=== PATIENT | male | born 1965 | race Caucasian/White ===

== ENCOUNTER 2016-11-01 04:03 | Observation (INO) | payer MEDICARE, MEDICAID ==
[~2016-11-01] VITALS: Ht 175.3 cm; Wt 104.3 kg
[~2016-11-01 04:03] MED LIST: ACYC400T PO; ALBU8.5H3 IH; ALBU8.5H3 INH; AMLO10TA4 PO; AMLO5TAB4 PO; AMOX1TAB61 PO; ARIP10TA13 PO; ASCO100T4 PO; ASPI325T4 PO; ATORVASTATIN CA80 MG PO; AZEL137S3 NS; BENZ200C39 PO; CANA100T PO; CARV12.5 PO; CHOL4000 PO; CLON1TAB3 PO; CLOP75TA PO; CLOP75TA27 PO; CLOT12CR2 TP; DICY20TA3 PO; DIPH1TAB PO; DIVA125C PO; FLUT16SP2 NS; FURO20TA3 PO; FURO40TA4 PO; GABA600T2 PO; GLIM4TAB2 PO; HYDR-2666 PO; HYDR-2762 PO; HYDR26CR TP; INSU100V13 SQ; ISOS60TA2 PO; KETO15CR TP; LEVE250T30 PO; LIPITOR80 MG PO; LOSA100T6 PO; LOXA5CAP PO; MAGN400T3 PO; METF10002 PO; METF500T4 PO; METOPROLOL 25 MG PO; MONT10TA6 PO; MONT10TA9 PO; MULT1TAB52 PO; NAPR220T70 PO; NAPR500T3 PO; NAPR500T8 PO; NITR0.4T6 SL; NYST1POW2 TP; NYST60PO TP; OMEG-33 PO; PANT40TA5 PO; PARO20TA55 PO; PARO30TA45 PO; PHEN100C PO; POTA10TA10 PO; POTA20TA12 PO; SITA100T PO; TRAZ100T12 PO; TRAZ150T55 PO
--- NOTE | 2016-11-01 04:20 | ED.ADGEN ---
Past History Past Medical History: Anxiety, CHF, Depression, Diabetes, GERD, High Cholesterol, Heart Disease, Hypertension, IBS, Seizure, Other Past Surgical History: Other Alcohol Use: Occasionally Drug Use: None Adult General Chief Complaint Chief Complaint '.. jezzes.. jezzes.. er .. er... " HPI HPI Patient is a 51 year old male who presents with hx of tonic clonic seizure at [facility] in [place], [place]. Pt. resident at [facility] since 2014. Pt. follows with Dr. Flores. Pt. has hx of seizure disorder. No information from Care Home for recent hx. given. Mold Yarn Supervisor advised he had a mental status change and tonic clonic seizure and received 2 mg Ativan IM. Pt. Has extensive medical hx. with HTN, DM, Lipdemia, Chronic Low back pain, Dermatophytosis, CADz, Morbid Obesity, SZ disorder, High risk homosexual behaviors , Herpes gingivostomatitis, Rhinitis, Depression, Tinea cruris, hemorrhoids, Osteoarthritis, Sleep apnea, AL, IBS, Anxiety, GERD, chronic headaches. Pt. on arrival appears post ictal. Pt. does respond to noxious stimuli and cross reacts. Pt. with repeated requests will move all extremities. Pt. DPA is Sheila Belle. [phone], and [phone]. No answer at [place] to determine currently hx of events. Review of Systems Review of Systems Pt. poor historian secondary to post itcal and mental status change Family History Family History Not currently available Current Medications Current Medications See Nursing for home meds. Allergies Allergies Allergies Coded Allergies Type Severity Reaction Last Updated Verified amitriptyline Allergy Intermediate 04/15/15 Yes risperidone Allergy Intermediate severe anxiety 04/15/15 Yes Physical Exam Physical Exam Constitutional: moderate distress, non-toxic appearance. [] HENT: Normocephalic, atraumatic, bilateral external ears normal, oropharynx moist, no oral exudates, nose normal. []Does have gag. Eyes: PERRLA, EOMI, conjunctiva normal, no discharge. [] Neck: Normal range of motion, no tenderness, supple, no stridor. [] Trachea mid line. Cardiovascular:Heart rate regular rhythm, no murmur , PMI to the left Lungs & Thorax: Bilateral breath sounds equal with scatter wheezes and rhonchi more Rt upper on auscultation [] Abdomen: Bowel sounds normal, soft, no tenderness, no masses, no pulsatile masses. Morbid obesity, incontinence Skin: Warm, dry, no erythema, no rash. Poor turgor Back: No tenderness, no CVA tenderness. [] Extremities: Does move extremities with noxious stimuli and repeat requests , edema. [] Neurologic: Only responsive to noxious stimuli and repeat requests. Does have a cross react motor function, appears to respond to noxious sensory Psychologic appears postictal, unable to make psychological assessment Current Patient Data Vital Signs Vital Signs Date Time Temp Pulse Resp B/P Pulse Ox O2 Delivery O2 Flow Rate FiO2 11/01/16 04:03 97.7 77 18 95 Room Air Lab Results Laboratory Tests Test 11/01/16 04:10 11/01/16 04:15 White Blood Count 5.7x10^3/uL (4.0-11.0) Red Blood Count 5.02x10^6/uL (4.30-5.70) Hemoglobin 13.7g/dL (13.0-17.5) Hematocrit 41.2% (39.0-53.0) Mean Corpuscular Volume 82fL (79-100) Mean Corpuscular Hemoglobin 27pg (25-35) Mean Corpuscular Hemoglobin Concent 33g/dL (31-37) Red Cell Distribution Width 16.0% (11.5-14.5) H Platelet Count 188x10^3/uL (140-400) Neutrophils (%) (Auto) 68% (31-73) Lymphocytes (%) (Auto) 20% (24-48) L Monocytes (%) (Auto) 9% (0-9) Eosinophils (%) (Auto) 3% (0-3) Basophils (%) (Auto) 0% (0-3) Neutrophils # (Auto) 3.9x10^3uL (1.8-7.7) Lymphocytes # (Auto) 1.1x10^3/uL (1.0-4.8) Monocytes # (Auto) 0.5x10^3/uL (0.0-1.1) Eosinophils # (Auto) 0.2x10^3/uL (0.0-0.7) Basophils # (Auto) 0.0x10^3/uL (0.0-0.2) Prothrombin Time 10.9SEC (9.4-11.4) Prothrombin Time INR 1.1 (0.9-1.1) PTT 30SEC (23-33) D-Dimer (Annie) 0.74mg/L (0.00-0.50) H Sodium Level 129mmol/L (136-145) L Potassium Level 3.9mmol/L (3.5-5.1) Chloride Level 91mmol/L (98-107) L Carbon Dioxide Level 31mmol/L (21-32) Anion Gap 7 (6-14) Blood Urea Nitrogen 7mg/dL (8-26) L Creatinine 0.7mg/dL (0.7-1.3) Estimated GFR (Cockcroft-Gault) 118.4 Glucose Level 71mg/dL (70-99) Calcium Level 8.7mg/dL (8.5-10.1) Magnesium Level 1.5mg/dL (1.8-2.4) L Total Bilirubin 0.3mg/dL (0.2-1.0) Direct Bilirubin 0.1mg/dL (0.0-0.2) Aspartate Amino Transferase (AST) 23U/L (15-37) Alanine Aminotransferase (ALT) 30U/L (16-63) Alkaline Phosphatase 112U/L (46-116) Creatine Kinase 117U/L (39-308) Creatine Kinase MB (Mass) 2.1ng/mL (0.0-3.6) Creatine Kinase MB Relative Index 1.8% (0-4) Troponin I Quantitative < 0.017ng/mL (0-0.055) DM-Zcl-T-Type Natriuretic Peptide 67pg/mL (0-124) Total Protein 7.4g/dL (6.4-8.2) Albumin 4.0g/dL (3.4-5.0) Lipase 373U/L (73-393) Phenytoin (Dilantin) Level 21.8mcg/mL (10.0-20.0) H Phenytoin Last Dose Date Unknown Phenytoin Last Dose Time Unknown Valproic Acid Level 20mcg/mL (50-100) L Valproic Acid Last Dose Date Unknown Valproic Acid Last Dose Time Unknown Urine Collection Type Unknown Urine Color Yellow Urine Clarity Clear Urine pH 7.5 Urine Specific Parker 1.010 Urine Protein Neg (NEG-TRACE) Urine Glucose (UA) 250mg/dL (NEG) Urine Ketones (Stick) Negmg/dL (NEG) Urine Blood Trace (NEG) Urine Nitrite Neg (NEG) Urine Bilirubin Neg (NEG) Urine Urobilinogen Dipstick 0.2mg/dL (0.2 mg/dL) Urine Leukocyte Esterase Neg (NEG) Urine RBC Occ/HPF (0-2) Urine WBC Rare/HPF (0-4) Urine Squamous Epithelial Cells Occ/LPF Urine Bacteria 0/HPF (0-FEW) Urine Opiates Screen Neg (NEG) Urine Methadone Screen Neg (NEG) Urine Barbiturates Neg (NEG) Urine Phencyclidine Screen Neg (NEG) Urine Amphetamine/Methamphetamine Neg (NEG) Urine Benzodiazepines Screen Neg (NEG) Urine Cocaine Screen Neg (NEG) Urine Cannabinoids Screen Neg (NEG) Urine Ethyl Alcohol Neg (NEG) EKG EKG I interpretation EKG shows sinus rhythm at 69. No findings acute STEMI of contralateral changes. [] Radiology/Procedures Radiology/Procedures I interpretation of chest x-ray shows no acute cardiopulmonary changes. Does have findings of chronic with no interval change . My interpretation of CT of head shows no shift, mass, edema, bleed, or fracture. No obvious interval change. See formal report when available. [] Course & Med Decision Making Course & Med Decision Making Pertinent Labs and Imaging studies reviewed. (See chart for details) Discussed presentation, testing and tx. plan with Dr. Timmons. Will admit for further eval and tx. Consult to Dr. Banda. - Neurology Reexamine patient - slowly returning responsiveness. Patient now able to answer simple questions at 0530 Hrs. [] Final Impression Final Impression 1. Tonic Clonic Seizure- Prolonged Post ictal. 2. Mental Status Change[] 3. Hyponatremia 4. Hypomagnesium 5. Mild elevation D-dimer Problems: Dragon Disclaimer Dragon Disclaimer This electronic medical record was generated, in whole or in part, using a voice recognition dictation system. SRINI YE MD Nov 01, 2016 04:20
[2016-11-01] MEDS ORDERED: ONDANSETRON PF 4 MG/2 ML VIAL. IV PRN (04:30)
[2016-11-01 04:44] LABS: BASO % 0 % (0-3); EOS # 0.2 x10^3/uL (0.0-0.7); EOS % 3 % (0-3); HEMATOCRIT 41.2 % (39.0-53.0); HEMOGLOBIN 13.7 g/dL (13.0-17.5); LYMPH # 1.1 x10^3/uL (1.0-4.8); LYMPH % 20 % (24-48); MEAN CORPUSCULAR HEMOGLOBIN 27 pg (25-35); MEAN CORPUSCULAR HGB CONC 33 g/dL (31-37); MEAN CORPUSCULAR VOLUME 82 fL (79-100); MONO # 0.5 x10^3/uL (0.0-1.1); MONO % 9 % (0-9); NEUT # 3.9 x10^3uL (1.8-7.7); NEUT % 68 % (31-73); PLATELET COUNT 188 x10^3/uL (140-400); RED BLOOD COUNT 5.02 x10^6/uL (4.30-5.70); WHITE BLOOD COUNT 5.7 x10^3/uL (4.0-11.0)
[2016-11-01 04:53] LABS: CLARITY,URINE CLEAR; COLOR,URINE YELLOW
[2016-11-01 04:54] LABS: BACTERIA,URINE 0 /HPF (0-FEW); BILIRUBIN,URINE NEG (NEG); GLUCOSE,URINE 250 mg/dL (NEG); NITRITE,URINE NEG (NEG); RBC,URINE OCC /HPF (0-2); SQUAMOUS EPITHELIAL CELL,UR OCC /LPF; UROBILINOGEN,URINE 0.2 mg/dL (0.2 mg/dL); WBC,URINE RARE /HPF (0-4)
[2016-11-01 04:56] LABS: BARBITURATES NEG (NEG); BENZODIAZEPINES NEG (NEG); CANNABINOIDS NEG (NEG); COCAINE NEG (NEG); METHADONE NEG (NEG); OPIATES NEG (NEG); PHENCYCLIDINE NEG (NEG)
[2016-11-01 04:57] LABS: AMPHETAMINE/METHAMPHETAMINE NEG (NEG)
--- NOTE | 2016-11-01 04:59 | RAD ---
CT head without contrast: Reason for examination: Mental status changes with seizure. Axial images were obtained through the brain with no contrast administered. Exposure: One or more of the following individualized dose reduction techniques were used for this examination: 1. Automated exposure control. 2. Adjustment of the mA and/or kV according to patient size. 3. Use of iterative reconstruction technique. Ventricular systems arm mildly prominent for the patient's age. No definite midline shift is seen. There is no evidence of intracranial hemorrhage, infarct, mass or edema. No abnormalities are seen in the orbits. Paranasal sinuses and mastoid air cells are clear. No acute skull abnormality is seen. Impression: No acute intracranial abnormality however ventricular systems are prominent for the patient's age but may reflect some cerebral atrophy. Recommend clinical correlation. Electronically signed by: Carol Dinh MD (Nov 01, 2016 04:57:40)
[2016-11-01] MEDS ORDERED: CEFTRIAXONE IM 1 GM VIAL. IM ONE (05:00)
[2016-11-01] MEDS ORDERED: LORAZEPAM 2 MG/ML VIAL IV ONE (05:00)
[2016-11-01] MEDS ORDERED: IV RINGERS SOLUTION,LACTATED 1,000 ML IV SCH (05:00)
[2016-11-01 05:10] LABS: ALK PHOS 112 U/L (46-116); ALT (SGPT) 30 U/L (16-63); ANION GAP 7 (6-14); AST (SGOT) 23 U/L (15-37); BLOOD UREA NITROGEN 7 mg/dL (8-26); CALCIUM 8.7 mg/dL (8.5-10.1); CARBON DIOXIDE 31 mmol/L (21-32); CHLORIDE 91 mmol/L (98-107); CREATINE KINASE 117 U/L (39-308); CREATININE 0.7 mg/dL (0.7-1.3); DIRECT BILIRUBIN 0.1 mg/dL (0.0-0.2); GFR 118.4; GLUCOSE 71 mg/dL (70-99); LIPASE 373 U/L (73-393); MAGNESIUM 1.5 mg/dL (1.8-2.4); PHENY 21.8 mcg/mL (10.0-20.0); POTASSIUM 3.9 mmol/L (3.5-5.1); SODIUM 129 mmol/L (136-145); TOTAL BILIRUBIN 0.3 mg/dL (0.2-1.0); TOTAL PROTEIN 7.4 g/dL (6.4-8.2)
[2016-11-01 05:12] LABS: VAL ACID 20 mcg/mL (50-100)
[2016-11-01] MEDS ORDERED: LORAZEPAM 2 MG/ML VIAL IV PRN (05:45)
[2016-11-01] MEDS ORDERED: SODIUM BICARB ADULT 8.4% 50 MEQ/50 ML DISP.SYRIN. IV ONE (06:00)
[2016-11-01] MEDS ORDERED: ENOXAPARIN ** NOTE DOSE ** SYRINGE SQ ONE (06:00)
[2016-11-01] MEDS ORDERED: MAGNESIUM SULFATE 2GM 50 ML IV ONE (06:00)
--- NOTE | 2016-11-01 06:40 | ACF ---
Admit Criteria Forms Admit Criteria Forms Admit Criteria Forms MENTAL STATUS CHANGE Clinical Indications for Inpatient Care (Place 'X' for any and all applicable criteria): Ongoing inpatient care may be needed for ANY ONE of the following(1)(2)(3)(5)(6) : [X]I. Suspected serious etiology (eg, medical disorder, NETWORK DIAGNOSTIC SUPPORT SPECIALIST event) of mental status change [ ]II. Danger to self or others not manageable at lower level of care [ ]III. Grave disability (eg, inability to perform self care necessary at lower level of care) [ ]IV. Agitation or inappropriate behavior interfering with care for primary condition (eg, attempting to discontinue lines or drains prematurely, unable to cooperate with respiratory care) [ ]V. Delirium [A] [D][E] as described by ANY ONE of the following(26): [ ]a) Delirium due to alcohol or sedative [F] withdrawal [ ]b) Delirium of uncertain etiology that has not responded to appropriate empiric treatment [ ]c) Delirium that prevents performance of a life-sustaining function (eg, feeding or hydrating oneself) [ ]. General contraindications and/or Inappropriate clinical situations for Observational Care in patients with Mental Status Change, when ANY ONE of the following is required: [ ]a) Prediction of prolongation of LOS based on ANY ONE of the following may be considered as a contraindication for observational care 2, 3, 4, 5, 6, 7, 8, 9, 10, 11 [ ]i) Age > 65 yrs. [ ]ii) Patient arriving by ambulance [ ]iii) Patient with high acuity [ ]iv) Patient requiring vital sign monitoring [ ]v) Patient on IV medication [ ]b) Systolic blood pressures 180mmHg 3,12 [ ]c) Patient with altered mental status including delirium and other alteration of consciousness, (3) [ ]d) Patient whose discharge disposition will be to a fci home or rehabilitation home should not be managed in Emergency Department Observation Unit. CMS rule requires 3 days hospital stay before such placement.3,13 [ ]e) Patient with failure to thrive due to broad array of etiologies 3,16,17 [ ]f) Inability to ambulate 3,14 Extended stay beyond goal length of stay for the primary condition may be needed until ALL of the following are present(3)(5): [ ]a) Underlying medical etiology of mental status change is absent, or has been established and adequately treated [ ]b) Danger to self or others is absent or manageable at lower level of care. [ ]c) Behavior crisis management, including physical or chemical restraints, is not required or available at lower level of car [ ]d) Substance or alcohol withdrawal is absent or manageable at lower level of care. [ ]e) Behavioral symptoms (eg, agitation, somnolence, inappropriate behavior) are absent, or are manageable at lower level of care. The original [facility] [employer] content created by [facility] [employer] has been revised. The portions of the content which have been revised are identified through the use of italic text or in bold, and [facility] has neither reviewed nor approved the modified material. All other unmodified content is copyright [facility] [employer]. Please see references footnoted in the original [facility] [employer] edition 2016 DOROTHY CHAPPELL Nov 01, 2016 06:40
--- NOTE | 2016-11-01 06:41 | EKG ---
[address] [address] Test Date: 2016-11-01 Test Time: 04:08:07 Pat Name: HARI DAVIS Department: Room: Gender: M Development Officer: CONNER : 1965 Requested By: SRINI YE Order Number: [id number] Reading MD: Measurements Intervals [place] Rate: 69 P: 32 ND: 170 QRS: 39 QRSD: 104 T: 54 QT: 384 QTc: 413 Interpretive Statements SINUS RHYTHM NO SPECIFIC ECG ABNORMALITIES RI6.01 Unconfirmed report No previous ECG available for comparison
[2016-11-01 07:14] LABS: INFLUENZA A PATIENT NEGATIVE (NEGATIVE); INFLUENZA B PATIENT NEGATIVE (NEGATIVE)
--- NOTE | 2016-11-01 07:14 | RAD ---
Portable chest, 11/01/2016: History: Seizure Comparison is made to a study from 09/17/2016. The heart size and pulmonary vascularity are normal. No pulmonary infiltrates are seen. There is no evidence of pleural fluid. IMPRESSION: No acute cardiopulmonary abnormality is detected.
[2016-11-01 07:24] VITALS: BP 127/76
[2016-11-01 08:00] VITALS: BP 127/64
[2016-11-01 09:00] VITALS: BP 102/55
[2016-11-01] MEDS ORDERED: ASPIRIN 81 MG TAB.CHEW PO SCH (09:00)
[2016-11-01 10:00] VITALS: BP 130/72
[2016-11-01] MEDS ORDERED: PHEN100C PO (10:15)
[2016-11-01 11:24] VITALS: BP 156/79
--- NOTE | 2016-11-01 15:09 | DS ---
DATE OF DISCHARGE: 11/01/2016 ADMISSION DATE: 11/01/2016. DISCHARGE DATE: 11/01/2016. DISCHARGE DIAGNOSES: 1. Pseudoseizure. 2. Chronic hyponatremia. 3. Hypomagnesemia -- replaced. 4. Diabetes. 5. Depression. 6. Anxiety. 7. Obstructive sleep apnea. BRIEF HOSPITAL COURSE: This is a 51-year-old male, who resides at [facility] in [place], [place]. He apparently yelled out from his bed, I am having a seizure, I am having a seizure, please come here. I need my phone, please called the ambulance, I am having a seizure. The patient was awake the entire time of complaining of a seizure and was not postictal or incontinent. He was transported to the hospital and was admitted for observation. The patient admitted to being stressed out because of the director at the facility where he is at is retired and this has made him upset and he started crying briefly. MEDICATIONS: His medications were reviewed and are available on the MAR. REVIEW OF SYSTEMS: Negative except for anxiety. OBJECTIVE: VITAL SIGNS: Blood pressure 132/72, pulse 68, respirations 20, and pulse ox was 93% on room air. GENERAL: The patient is alert. HEENT: Pupils are equal, round, and react to light. Extraocular muscles are intact. He does have cross eyed. His nose is patent. His throat was clear. NECK: Supple. LUNGS: Clear. CARDIOVASCULAR: Regular rhythm and rate. ABDOMEN: Soft, nontender. EXTREMITIES: Without edema. NEUROLOGIC: He is intact. There is no seizure activity. His mood is anxious. LABORATORY DATA: Reviewed. His magnesium was 1.5. This was replaced. His sodium was 129, which is fairly chronic from polydipsia. His Dilantin level was 21.8. His valproic acid level was 20. He was seen in consultation by Dr. Banda and felt also it was most likely a pseudoseizure. He was discharged back to [facility]. He will follow up with Dr. Banda as needed. I did decrease his nighttime Dilantin from 400 to 300 mg at bedtime. MY GONZALEZ DO DR: JOSE LUIS/evangelista JOB#: [id number] / [id number]
[2016-11-01 20:07] LABS: HEMOGLOBIN A1C 5.2 % (4.8-5.6)
--- NOTE | 2016-11-03 13:57 | SSS ---
ADMIT DATE: 11/01/2016 ADMISSION DATE: 11/01/2016. DISCHARGE DATE: 11/01/2016. DISCHARGE DIAGNOSES: 1. Pseudoseizure. 2. Chronic hyponatremia. 3. Hypomagnesemia -- replaced. 4. Diabetes. 5. Depression. 6. Anxiety. 7. Obstructive sleep apnea. BRIEF HOSPITAL COURSE: This is a 51-year-old male, who resides at [facility] in [place], [place]. He apparently yelled out from his bed, I am having a seizure, I am having a seizure, please come here. I need my phone, please called the ambulance, I am having a seizure. The patient was awake the entire time of complaining of a seizure and was not postictal or incontinent. He was transported to the hospital and was admitted for observation. The patient admitted to being stressed out because of the director at the facility where he is at is retired and this has made him upset and he started crying briefly. MEDICATIONS: His medications were reviewed and are available on the MAR. REVIEW OF SYSTEMS: Negative except for anxiety. OBJECTIVE: VITAL SIGNS: Blood pressure 132/72, pulse 68, respirations 20, and pulse ox was 93% on room air. GENERAL: The patient is alert. HEENT: Pupils are equal, round, and react to light. Extraocular muscles are intact. He does have cross eyed. His nose is patent. His throat was clear. NECK: Supple. LUNGS: Clear. CARDIOVASCULAR: Regular rhythm and rate. ABDOMEN: Soft, nontender. EXTREMITIES: Without edema. NEUROLOGIC: He is intact. There is no seizure activity. His mood is anxious. LABORATORY DATA: Reviewed. His magnesium was 1.5. This was replaced. His sodium was 129, which is fairly chronic from polydipsia. His Dilantin level was 21.8. His valproic acid level was 20. He was seen in consultation by Dr. Banda and felt also it was most likely a pseudoseizure. He was discharged back to [facility]. He will follow up with Dr. Banda as needed. I did decrease his nighttime Dilantin from 400 to 300 mg at bedtime. MY GONZALEZ DO DR: JOSE LUIS/evangelista JOB#: [id number] / [id number]
== END 2016-11-01 11:55 | disposition home or self-care (01) ==
LOC: ER 04:14 → INTOOBSV 04:29 → ICU 04:29
PROVIDERS: ADMIT Internal Medicine; ATTEND Internal Medicine
DX: F44.5 Conversion disorder with seizures or convulsions (principal); E87.1 Hypo-osmolality and hyponatremia; E83.42 Hypomagnesemia; E11.9 Type 2 diabetes mellitus without complications; F32.9 Major depressive disorder, single episode, unspecified; F41.9 Anxiety disorder, unspecified; G47.33 Obstructive sleep apnea (adult) (pediatric); I50.9 Heart failure, unspecified; K21.9 Gastro-esophageal reflux disease without esophagitis; E78.00 Pure hypercholesterolemia, unspecified; I10 Essential (primary) hypertension; K58.9 Irritable bowel syndrome, unspecified; G89.29 Other chronic pain; M54.5 Low back pain; I25.10 Atherosclerotic heart disease of native coronary artery without angina pectoris; E66.01 Morbid (severe) obesity due to excess calories; M19.90 Unspecified osteoarthritis, unspecified site; I25.2 Old myocardial infarction; G40.909 Epilepsy, unspecified, not intractable, without status epilepticus
CPT/HCPCS: 36415; 70450; 71010; 80048; 80061; 80076; 80164; 80185; 81001; 82553; 83036; 83690; 83735; 83880; 84443; 84484; 85027; 85379; 85610; 85730; 87040; 87804; 93005; 96361; 96365; 96366; 96372; 96375; 99285; G0378; G0481; J0696; J1650; J2060; J2405; J3475; J3490; J7120; G0379